=== PATIENT | female | born 1940 | race Two or more races ===

== ENCOUNTER 2019-08-10 19:39 | Emergency (ER) | payer OTHER ==
[~2019-08-10] VITALS: Ht 144.8 cm; Wt 46.7 kg
[2019-08-10] MEDS ORDERED: ACETAMINOPHEN 500 MG TAB PO ONE (20:00)
[2019-08-10 23:42] VITALS: BP 163/93
== END 2019-08-11 00:20 | disposition home or self-care (01) ==
LOC: ER 19:42
DX: S52.614A Nondisplaced fracture of right ulna styloid process, initial encounter for closed fracture (principal); S52.591A Other fractures of lower end of right radius, initial encounter for closed fracture; I10 Essential (primary) hypertension; E78.5 Hyperlipidemia, unspecified; M19.90 Unspecified osteoarthritis, unspecified site; Z86.73 Personal history of transient ischemic attack (TIA), and cerebral infarction without residual deficits; W19.XXXA Unspecified fall, initial encounter; Y93.89 Activity, other specified; Y99.8 Other external cause status; Y92.89 Other specified places as the place of occurrence of the external cause
CPT/HCPCS: 29125; 73110